=== PATIENT | male | born 1995 | race Hispanic/Latino ===

== ENCOUNTER 2017-07-17 13:26 | Inpatient (IN) | payer OTHER ==
[~2017-07-17] VITALS: Ht 170.2 cm; Wt 75.0 kg
[~2017-07-17 13:26] MED LIST: CIPR500S PO; FLAG500T PO
[2017-07-17 14:18] LABS: MEAN CORPUSCULAR HEMOGLOBIN 29.6 pg (27.0-33.0); MEAN CORPUSCULAR HGB CONC 32.6 g/dl (32.0-36.5); MEAN CORPUSCULAR VOLUME 90.7 fl (80.0-96.0); PLATELET COUNT, AUTOMATED 229 10^3/uL (150-450); RED CELL DISTRIBUTION WIDTH 12.3 % (11.5-14.5); WHITE BLOOD COUNT 8.9 10^3/uL (4.0-10.0)
[2017-07-17 14:43] LABS: METHADONE URINE NEGATIVE (NEGATIVE)
[2017-07-17 14:57] LABS: ALBUMIN 4.4 GM/DL (3.2-5.2); ALBUMIN/GLOBULIN RATIO 1.13 (1.00-1.93); ALKALINE PHOSPHATASE 76 U/L (45-117); ALT/SGPT 18 U/L (12-78); ANION GAP 4 MEQ/L (8-16); AST/SGOT 9 U/L (7-37); BILIRUBIN,DIRECT < 0.1 MG/DL (0.0-0.2); BILIRUBIN,TOTAL 0.5 MG/DL (0.2-1.0); BLOOD UREA NITROGEN 12 MG/DL (7-18); CARBON DIOXIDE LEVEL 31 MEQ/L (21-32); CHLORIDE LEVEL 106 MEQ/L (98-107); GLOMERULAR FILTRATION RATE > 60.0 (>60); GLUCOSE, FASTING 87 MG/DL (70-105); POTASSIUM SERUM 3.3 MEQ/L (3.5-5.1); SODIUM LEVEL 141 MEQ/L (136-145); TOTAL PROTEIN 8.3 GM/DL (6.4-8.2)
[2017-07-17] MEDS ORDERED: POTASSIUM CHLORIDE 10 MEQ SR TABLET PO ONE (16:00)
[2017-07-17] MEDS ORDERED: MOM 30ML SUSPENSION UDC PO PRN (18:00)
[2017-07-17] MEDS ORDERED: MAALOX 30 ML SUSP *UDC PO PRN (18:00)
[2017-07-17] MEDS ORDERED: ACETAMINOPHEN TAB 650MG DOSE (2X325MG) PO PRN (18:00)
[2017-07-17] MEDS ORDERED: traZODone 50 MG TAB PO PRN (18:00)
[2017-07-17 23:34] VITALS: BP 110/56
[2017-07-18 07:00] VITALS: BP 117/55
--- NOTE | 2017-07-18 09:32 | HPEPDOC ---
[facility] Medical History & Physical Date of Admission Jul 17, 2017 History and Physical PCP: [facility] ATTENDING: Dr. Darek Holman HPI: 21 yo M admitted to [facility] for unspecified depressive disorder, being medically examined today. No acute medical complaints today. The patient states he has chronic right knee pain. He has seen his primary care provider at [facility] regarding this. He does not take any medication for the pain. Appointment arranged to further address this. He states his pain has been controlled. Denies any fevers, chills, weakness, fatigue, MONK, CP, SOB, cough, palpitations , abdominal pain, N/V/D or changes in bowel or bladder habits. PMHx: Chronic right knee pain Depression PSHX: Denies SOCHX: Resides in: [facility], from [place] Marital Status: Kids: None Employment: Active duty Tobacco use: One pack per day ETOH: One or 2 drinks a month Illicit Drugs: Denies IV Drug Use: Denies Tattoos done unprofessionally: Denies FAMHX: Mother: Alive, well Father: Alive, well Siblings: 2 sisters, 4 brothers Alive, well Children: None Unexpected deaths due to medical reasons: None. ROS: As noted in HPI, otherwise 11pt ROS of systems reviewed and unremarkable. PE: GEN: 21 yo M, appears stated age. Well-nourished, well developed. No acute distress. Alert and oriented x 3. Pleasant, interactive. HEENT: Normocephalic, atraumatic. Pupils are equal, round, and reactive to light. Extraocular movements are intact. No nystagmus appreciated. Sclera are nonicteric. Conjunctiva without injection. Nose midline. Nasal turbinates without bogginess. EACs both patent BL. TMs both visualized and newman with good cone of light, no bulging or erythema. No facial asymmetry. Moist mucous membranes. Dentition fair. Pharynx pink and moist, no cobblestoning. Neck supple , trachea midline. No lymphadenopathy or thyromegaly appreciated. CHEST: Regular rate and rhythm, +S1, +S2 LUNGS: Clear to auscultation bilaterally. No wheezes, rales, or rhonchi. Breathing appears symmetric and easy. Patient is speaking in full sentences. No accessory muscle use. ABD: Round, soft, non-tender, non-distended. +Bowel sounds throughout. No rebound or guarding. No costovertebral angle tenderness. EXT: Pulses 2+ bilaterally dorsalis pedis and radial. No lower extremity edema appreciated. SKIN: [place], dry, warm. Capillary refill <2sec. No rashes. NEURO: Alert and oriented x 3. Cranial nerves III-XII are intact. No focal deficits appreciated. EKG: Pending A&P: 21 yo M admitted to [facility] for unspecified depressive disorder 1. Psych. Plan per Psychiatry. Obtain baseline EKG to assure the safety of psychiatric medications as they can prolong the QT interval. 2. Nicotine dependence. Patch available. 3. Chronic right knee pain. Continue outpatient follow-up. Tylenol 650 mg every 6 hours as needed. 4. Follow up with PCP on discharge. 5. Hypokalemia. Status post supplement. Recheck BMP in a.m. Staff member Clay present throughout exam. Vital Signs Vital Signs Date Time Temp Pulse Resp B/P (MAP) Pulse Ox O2 Delivery O2 Flow Rate FiO2 07/18/17 07:00 98.3 52 12 117/55 (75) 07/17/17 23:34 98 Room Air Laboratory Data Labs 24H Laboratory Tests 2 07/17/17 13:56: Nucleated Red Blood Cells % (auto) 0.0, Anion Gap 4L, Glomerular Filtration Rate > 60.0, Calcium Level 9.0, Aspartate Amino Transf (AST/SGOT) 9, Alanine Aminotransferase (ALT/SGPT) 18, Alkaline Phosphatase 76, Total Bilirubin 0.5, Direct Bilirubin < 0.1, Total Protein 8.3H, Albumin 4.4, Albumin/Globulin Ratio 1.13, Thyroid Stimulating Hormone (TSH) 0.999, Salicylates Level < 1.7L, Urine Amphetamines Screen NEGATIVE, Urine Benzodiazepines Screen POSITIVEH, Urine Opiates Screen POSITIVEH, Urine Methadone Screen NEGATIVE, Acetaminophen Level < 2.0L, Urine Barbiturates Screen NEGATIVE, Urine Phencyclidine Screen NEGATIVE , Urine Cocaine Metabolite Screen NEGATIVE, Urine Cannabinoids Screen NEGATIVE, Ethyl Alcohol Level < 0.003 CBC/BMP Laboratory Tests 07/17/17 13:56 Red Blood Count 4.83, Mean Corpuscular Volume 90.7, Mean Corpuscular Hemoglobin 29.6, Mean Corpuscular Hemoglobin Concent 32.6, Red Cell Distribution Width 12.3 Home Medications No Active Prescriptions or Reported Meds Allergies Coded Allergies: No Known Allergies (Unverified , 01/01/15) Emmy Dorantes Jul 18, 2017 09:32 HOLLY WOODWARD MD Jul 18, 2017 10:11
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
[2017-07-18 18:00] VITALS: BP 132/60
[2017-07-18] MEDS: NICOTINE 21MG/24HR 1 EA TRANSDERMAL TD SCH (19:06)
[2017-07-19 06:41] VITALS: BP 119/60
[2017-07-19 08:43] LABS: ANION GAP 5 MEQ/L (8-16); BLOOD UREA NITROGEN 15 MG/DL (7-18); CALCIUM LEVEL 9.5 MG/DL (8.5-10.1); CARBON DIOXIDE LEVEL 31 MEQ/L (21-32); CHLORIDE LEVEL 105 MEQ/L (98-107); CREATININE FOR GFR 1.04 MG/DL (0.70-1.30); GLOMERULAR FILTRATION RATE > 60.0 (>60); GLUCOSE, FASTING 89 MG/DL (70-105); POTASSIUM SERUM 4.7 MEQ/L (3.5-5.1); SODIUM LEVEL 141 MEQ/L (136-145)
[2017-07-19] MEDS: NICOTINE 21MG/24HR 1 EA TRANSDERMAL TD SCH (09:00)
--- NOTE | 2017-07-19 09:00 | MHIPNPDOC ---
[facility] Progress Note Progress Note DATE OF SERVICE: 07/19/17 HISTORY: Patient states his mood has improved, currently feeling good. Had good sleep the night before, socializing on the unit, denies SI intent and plan. Future oriented, talking about taking care of issues at home and coordinating with his fiance. Pt to begin prozac today because he states that from time to time he does become depressed even though he is feeling good now. VITAL SIGNS: See below. NEW TEST RESULTS: NA CURRENT MEDICATIONS: See below. MENTAL STATUS EXAMINATION: Speech: normal RRVT Language skills are fluent. Thought processes including: linear Thought content: appropriate to conversation Judgment: fair Insight: fair Orientation: intact Mood: good Affect: euthymic, full range DIAGNOSES: 1. depressive disorder unspecified ASSESSMENT: It is unclear whether the patient has MDD as his mood can vary from depressed with anhedonia and fatigue to euthymic with good motivation and energy. Will initiate prozac for now, discussed with patient about discontinuing the prozac if he feels like he does not need it. Described to patient that prozac takes 1 month to have an effect. - Prozac 10 mg daily for mood - Continue PRN MOM, mylanta, tylenol, trazodone - Likely DC tomorrow TIME SPENT: 25 minutes. Vital Signs Vital Signs Date Time Temp Pulse Resp B/P (MAP) Pulse Ox O2 Delivery O2 Flow Rate FiO2 07/19/17 06:41 98.3 53 18 119/60 (79) 07/17/17 23:34 98 Room Air Laboratory Data 24H Labs Laboratory Tests 2 07/18/17 10:21: 07/19/17 07:35: Anion Gap 5L, Glomerular Filtration Rate > 60.0, Blood Urea Nitrogen 15, Creatinine 1.04, Sodium Level 141, Potassium Level 4.7#, Chloride Level 105, Carbon Dioxide Level 31, Calcium Level 9.5 CBC/BMP Laboratory Tests 07/19/17 07:35 Calcium Level 9.5 Current Medications Current Medications Acetaminophen (Tylenol Tab) 650 mg Q6HP PRN PO HEADACHE or DISCOMFORT; Start 07/17/17 at 18:00; Stop 08/16/17 at 17:59 Al Hydrox/Mg Hydrox/Simethicone (Mylanta) 30 ml Q4HP PRN PO HEARTBURN/ INDIGESTION; Start 12/4/17 at 18:00; Stop 08/16/17 at 17:59 Home Med (Med Rec Complete!) ASDIRECTED XX ; Start 07/17/17 at 15:45; Stop 07/17/17 at 16:07; Status DC Magnesium Hydroxide (Milk Of Magnesia) 30 ml DAILYPRN PRN PO CONSTIPATION; Start 07/17/17 at 18:00; Stop 08/16/17 at 17:59 Nicotine (Nicoderm Cq 21mg) 1 patch DAILY TD Last administered on 07/18/17t 19: 06; Start 07/18/17 at 09:00; Stop 08/17/17 at 08:59 Trazodone HCl (Desyrel) 50 mg QHSP PRN PO INSOMNIA; Start 07/17/17 at 18:00; Stop 08/16/17 at 17:59 Allergies Coded Allergies: No Known Allergies (Unverified , 01/01/15) HOLLY WOODWARD MD Jul 19, 2017 09:00
[2017-07-19] MEDS: FLUoxetine 10 MG CAP PO SCH (09:16)
--- NOTE | 2017-07-19 09:25 | ECGEPIP ---
Stationary ECG Study [facility] Test Date: 2017-07-18 Pat Name: ARACELIS GARCIA Department: Room: [place] [address] Gender: M Boat [employer]: SAMINA : 1995 Requested By: Emmy Dorantes Order Number: [id number] Reading MD: Zackary Ramsey Measurements Intervals [place] Rate: 51 P: 25 CA: 158 QRS: 26 QRSD: 87 T: 21 QT: 380 QTc: 353 Interpretive Statements SINUS BRADYCARDIA WITH MARKED SINUS ARRHYTHMIA Otherwise normal Electronically Signed On 07-19-2017 9:24:45 EST by Zackary Ramsey
[2017-07-19 18:00] VITALS: BP 114/86
[2017-07-19] MEDS ORDERED: NICOTINE 21MG/24HR 1 EA TRANSDERMAL TD ONE (21:30)
[2017-07-20 07:31] VITALS: BP 107/57
[2017-07-20] MEDS: NICOTINE 21MG/24HR 1 EA TRANSDERMAL TD SCH (08:50)
[2017-07-20] MEDS: FLUoxetine 10 MG CAP PO SCH (08:50)
[2017-07-20] MEDS ORDERED: PROZ10CA7 PO (09:23)
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
== END 2017-07-20 13:55 | disposition home or self-care (01) | DRG 881 ==
LOC: M ED 13:26 → M ED INP 16:07 → M PSY 23:28
PROVIDERS: ADMIT Psychiatry & Neurology Psychiatry; ATTEND Psychiatry & Neurology Psychiatry
DX: F32.9 Major depressive disorder, single episode, unspecified (principal); M25.561 Pain in right knee; F17.200 Nicotine dependence, unspecified, uncomplicated; E87.6 Hypokalemia